=== PATIENT | female | born 1970 | race Caucasian/White ===

== ENCOUNTER 2016-12-27 20:01 | Emergency (ER) | payer BC, OTHER ==
--- NOTE | 2016-12-27 20:29 | Emergency Department Record ---
History of Present Illness - General Chief Complaint: Chest Pain Stated Complaint: LIGHTHEADED,CHEST HURTS Time Seen by Provider: 12/27/16 20:23 Source: Patient Mode of Arrival: Ambulatory Limitations: No limitations - History of Present Illness Initial Comments: 46 yo female presents to ED with a CC of chest discomfort and dizziness tonight while eating dinner, last approximately 5 minutes then resolved. Patient denies any radiation of her pain symptoms, denies health problems at her baseline except for elevated blood pressure intermittently for the past several months. Patient denies calf swelling/history of DVT, denies pain with inspiration. Patient alos denies any recent cough, cold, or congestion symptoms. MD Complaint: Chest pain Onset/Timin -: Minutes(s) Onset: After eating Severity: Mild Severity scale (1-10): 4 Quality: Tightness Consistency: Constant Improves With: Nothing Worsens With: Movement Context: Other Anginal Symptoms: Other Treatments Prior to Arrival: None - Related Data Home Medications Medication Instructions Recorded Confirmed Last Taken No Home Med [NO HOME MEDS] 12/27/16 12/27/16 Unknown Allergies Allergy/AdvReac Type Severity Reaction Status Date / Time No Known Drug Allergies Allergy Verified 12/27/16 20:07 Travel Screening - Travel/Exposure Within Last 30 Days Have you traveled within the last 30 days?: No - Travel/Exposure Within Last Year Have you traveled outside the [place] in the last year?: No - Additonal Travel Details Have you been exposed to anyone with a communicable illness?: No - Travel Symptoms Symptom Screening: None Review of Systems Constitutional: Denies: Chills, Fever, Malaise, Night sweats Eyes: Denies: Eye discharge, Eye pain ENT: Denies: Congestion, Ear pain, Epistaxis Respiratory: Denies: Cough, Dyspnea Cardiovascular: Reports: Chest pain. Denies: Dyspnea on exertion Endocrine: Denies: Fatigue, Heat or cold intolerance Gastrointestinal: Denies: Abdominal pain, Constipation, Nausea, Vomiting Genitourinary: Denies: Dysuria, Frequency, Hematuria, Incontinence Musculoskeletal: Denies: Arthralgia, Back pain, Gout, Joint swelling Skin: Denies: Bruising, Change in color, Change in hair/nails Neurological: Denies: Abnormal gait, Confusion, Headache, Seizure Psychiatric: Denies: Anxiety Hematological/Lymphatic: Denies: Anemia, Blood Clots Past Medical History - SOCIAL HISTORY Smoking Status: Never smoker Alcohol Use: Rare Drug Use: None - RESPIRATORY Hx Respiratory Disorders: No - CARDIOVASCULAR Hx Cardio Disorders: Yes Hx Palpitations: Yes - NEURO Hx Neuro Disorders: No - GI Hx GI Disorders: No - Hx Genitourinary Disorders: No - ENDOCRINE Hx Endocrine Disorders: No - MUSCULOSKELETAL Hx Musculoskeletal Disorders: No - PSYCH Hx Psych Problems: No - HEMATOLOGY/ONCOLOGY Hx Hematology/Oncology Disorders: No Hx Cancer: Yes (melanoma) Family Medical History Any Significant Family History?: Yes Family Hx Comment (NOT TO BE USED IN PLACE OF ITEMS BELOW): Colon polyps in brother. Parkinsons' in father Hx Cancer: Mother, Brother/Sister Physical Exam - General General Appearance: Alert, Oriented x3, Cooperative, No acute distress Limitations: No limitations - Head Head exam: Atraumatic, Normocephalic, Normal inspection Head exam detail: negative: Abrasion, Contusion, Wu's sign, General tenderness, Hematoma, Laceration - Eye Eye exam: Normal appearance. negative: Conjunctival injection, Periorbital swelling, Periorbital tenderness, Scleral icterus - ENT Ear exam: negative: Auricular hematoma, Auricular trauma Nasal Exam: negative: Active bleeding, Discharge, Dried blood, Foreign body Mouth exam: negative: Drooling, Laceration, Muffled voice, Tongue elevation - Neck Neck exam: Normal inspection. negative: Meningismus, Tenderness - Respiratory Respiratory exam: Normal lung sounds bilaterally. negative: Rales, Respiratory distress, Rhonchi, Stridor, Wheezes - Cardiovascular Cardiovascular Exam: Regular rate, Normal rhythm, Normal heart sounds - GI/Abdominal GI/Abdominal exam: Soft. negative: Rebound, Rigid, Tenderness - Rectal Rectal exam: Deferred - exam: Deferred - Extremities Extremities exam: Normal inspection. negative: Calf tenderness, Pedal edema, Tenderness - Back Back exam: Denies: CVA tenderness (R), CVA tenderness (L) - Neurological Neurological exam: Alert, Normal gait, Oriented X3 - Psychiatric Psychiatric exam: Normal affect, Normal mood - Skin Skin exam: Normal color. negative: Abrasion Type of lesion: negative: abrasion Course Vital Signs 12/27/16 20:07 Temperature 98.3 F Pulse Rate 79 Respiratory 20 Rate Blood Pressure 189/112 Pulse Ox 97 - Reevaluation(s) Reevaluation #1: 12/27/16 20:28 EKG: NSR 79 Normal axis, normal intervals T wave inversion III only, nonspecific changes V4-V6. Patient is PERC negative one examination as well. Will perform (2) sets of cardiac markers and continuously monitor. Reevaluation #2: 12/27/16 21:33 Labs reviewed and are grossly unremarkable for an acute process. CXR: No acute process. Patient was updated on all results, resting comfortably pain-free at this time. Will continue to monitor. Reevaluation #3: 12/28/16 00:29 Repeat Troponin is normal. Patient was updated on all results and appears stable for discharge at this time. Medical Decision Making - Lab Data Result diagrams: 12/27/16 20:13 12/27/16 20:13 Disposition Disposition: Discharge Clinical Impression: Chest pain Qualifiers: Chest pain type: unspecified Qualified Code(s): R07.9 - Chest pain, unspecified Disposition: Home, Self-Care Condition: (2) Stable Instructions: Chest Pain (ED) Additional Instructions: Return to ED if your symptoms worsen or if you have any concerns. Follow-up with your family doctor or a provider from the referral list for further cardiac evaluation in 1 week. Forms: Patient Portal Access Time of Disposition: 00:29
[2016-12-27 20:30] LABS: BASO % 0.5 % (0-6); EOS % 1.9 % (0-6); GRAN % 56.6 % (47-80); HEMATOCRIT 39.6 % (35.0-47.0); HEMOGLOBIN 13.3 gm/dl (11.6-16.0); LYMPH % 33.1 % (16-45); MEAN CORPUSCULAR HEMOGLOBIN 29.6 pg (27-33); MEAN CORPUSCULAR HGB CONC 33.6 g/dl (32-36); MONO % 7.9 % (0-9); PLATELET COUNT 336 K/uL (130-400); RED CELL DISTRIBUTION WIDTH 12.2 % (11.5-14.5); WHITE BLOOD COUNT W/O DIFF 8.6 K/uL (4.2-12.2)
[2016-12-27 20:42] LABS: ALB/GLOB RATIO 1.4 (1.1-1.8); ALBUMIN 4.7 gm/dL (3.5-5.0); ALKALINE PHOSPHATASE 70 U/L (38-126); ALT/SGPT 28 U/L (9-52); ANION GAP 10.7 (7-16); AST/SGOT 20 U/L (14-36); BILIRUBIN,TOTAL 0.37 mg/dL (0.2-1.3); BLOOD UREA NITROGEN 15 mg/dL (7-17); CARBON DIOXIDE 28.3 mmol/L (22-30); CREATINE PHOSPHOKINASE 70 U/L (30-135); CREATININE 0.6 mg/dL (0.52-1.04); EST GLOMERULAR FILTRATION RATE > 60 ml/min; GLUCOSE,RANDOM 77 mg/dL (70-110)
[2016-12-27 20:54] LABS: CKMB 0.6 ug/L (0-6)
[2016-12-27 20:55] LABS: TROPONIN I < 0.012 ng/mL (0.00-0.034)
[2016-12-27 21:13] LABS: THYROID STIMULATING HORMONE 2.31 uIU/ml (0.465-4.68)
== END 2016-12-28 00:40 | disposition home or self-care (01) ==
LOC: ER 20:01
DX: R07.89 Other chest pain (principal); R42 Dizziness and giddiness
CPT/HCPCS: 71020; 80053; 82550; 82553; 84443; 84484; 85025; 93005; 93010; 99284